=== PATIENT | male | born 1985 | race Caucasian/White ===

== ENCOUNTER 2020-03-30 07:58 | Emergency (ER) | payer OTHER ==
[~2020-03-30] VITALS: Ht 175.3 cm; Wt 83.6 kg
[2020-03-30] MEDS ORDERED: LORTAB 1010 MG PO (09:05)
[2020-03-30] MEDS ORDERED: AMOXICILLIN500 MG PO (09:05)
[2020-03-30 09:31] VITALS: BP 1148/98
== END 2020-03-30 09:40 | disposition home or self-care (01) | DRG 983 ==
LOC: ED 07:58
PROC: 0HQQXZZ Repair Finger Nail, External Approach (ICD-10-PCS; principal; 2020-03-30)
DX: S62.635B Displaced fracture of distal phalanx of left ring finger, initial encounter for open fracture (principal); F17.200 Nicotine dependence, unspecified, uncomplicated; W23.0XXA Caught, crushed, jammed, or pinched between moving objects, initial encounter; Y93.89 Activity, other specified; Y92.89 Other specified places as the place of occurrence of the external cause; Y99.0 Civilian activity done for income or pay